=== PATIENT | female | born 1985 | race Two or more races ===

== ENCOUNTER 2017-06-05 09:47 | Emergency (ER) | payer MEDICAID ==
[~2017-06-05] VITALS: Ht 149.9 cm; Wt 94.6 kg
[2017-06-05] MEDS ORDERED: KETOROLAC 30 MG/1 ML ONE (10:14)
[2017-06-05] MEDS ORDERED: KETOROLAC 30 MG/1 ML IM ONE (10:30)
[2017-06-05] MEDS ORDERED: METHOCARBAMOL 500 MG TABLET PO ONE (10:30)
[2017-06-05 10:53] LABS: CULTURE INDICATED? YES; MICROSCOPIC INDICATED
[2017-06-05 11:41] VITALS: BP 113/71
== END 2017-06-05 12:05 | disposition home or self-care (01) ==
LOC: ED 10:13
DX: S29.012A Strain of muscle and tendon of back wall of thorax, initial encounter (principal); F17.210 Nicotine dependence, cigarettes, uncomplicated; X58.XXXA Exposure to other specified factors, initial encounter; Y93.89 Activity, other specified; Y92.89 Other specified places as the place of occurrence of the external cause; Y99.8 Other external cause status
CPT/HCPCS: 74018; 76770; 81001; 87086; 96372; 99285; J1885

== ENCOUNTER 2018-09-18 20:00 | Emergency (ER) | payer SELFPAY ==
[~2018-09-18] VITALS: Ht 149.9 cm; Wt 94.2 kg
--- NOTE | 2018-09-18 20:24 | NUR ---
First contact w/ pt. Evident marijuana smell permeating room. Pt presents w/ abd pain and bilateral flank painxmultiple days and n/v. States vbx2 days and hx of hysterectomy. C/o kaur today w/ mild photophobia. Pt attempting ua at this time.
[2018-09-18] MEDS ORDERED: PROMETHAZINE 25 MG/ML, 1ML ONE (20:40)
[2018-09-18 20:50] LABS: MICROSCOPIC INDICATED
[2018-09-18 20:50] LABS: BASOPHILS # (AUTO) 0.05 x10^3/uL (0-0.1); BASOPHILS % (AUTO) 1 % (0-1); EOSINOPHILS # (AUTO) 0.42 x10^3/uL (0-0.4); EOSINOPHILS % (AUTO) 5 % (1-7); LYMPHOCYTES # (AUTO) 2.97 x10^3/uL (1-3.4); LYMPHOCYTES % (AUTO) 36 % (22-44); MD NO; MEAN CORPUSCULAR HEMOGLOBIN 27.2 pg (27.0-34.8); MEAN CORPUSCULAR HGB CONC 33.4 g/dL (32.4-35.8); MEAN CORPUSCULAR VOLUME 81.6 fL (80-100); MEAN PLATELET VOLUME 8.3 fL (7.4-10.4); MONOCYTES # (AUTO) 0.42 x10^3/uL (0.2-0.8); MONOCYTES % (AUTO) 5 % (2-9); NEUTROPHILS # (AUTO) 4.43 x10^3/uL (1.8-6.8); NEUTROPHILS % (AUTO) 54 % (42-75); PLATELET COUNT 356 x10^3/uL (130-400); RED BLOOD COUNT 4.97 x10^6/uL (3.82-5.3); RED CELL DISTRIBUTION WIDTH 14.4 % (9.6-15.2)
[2018-09-18 20:51] LABS: CULTURE INDICATED? YES
[2018-09-18 20:56] LABS: ALANINE AMINOTRANSFERASE 28 U/L (12-78); ALBUMIN 3.2 g/dL (3.4-5.0); ANION GAP 6 mmol/L (5-15); CALCIUM 8.5 mg/dL (8.5-10.1); CHLORIDE 107 mmol/L (98-107); CREATININE 0.88 mg/dL (0.55-1.02)
[2018-09-18 20:59] LABS: ALKALINE PHOSPHATASE 103 U/L (45-117); BILIRUBIN,TOTAL < 0.1 mg/dL (0.2-1.0); TOTAL PROTEIN 7.6 g/dL (6.4-8.2)
[2018-09-18] MEDS ORDERED: PROMETHAZINE 25 MG/ML, 1ML IM ONE (21:00)
[2018-09-18 21:12] VITALS: BP 128/70
--- NOTE | 2018-09-18 21:13 | NUR ---
Md states no pelvic needed at this time. All results back. Pt up for recheck.
[2018-09-18] MEDS ORDERED: CEFDINIR 300 MG CAPSULE PO ONE (21:30)
[2018-09-18] MEDS ORDERED: CEFDINIR 300 MG CAPSULE ONE (21:31)
--- NOTE | 2018-09-18 21:38 | NUR ---
Pt tbdc. Awaiting dc instructions.
== END 2018-09-18 21:53 | disposition home or self-care (01) ==
LOC: ED 21:47
DX: N30.01 Acute cystitis with hematuria (principal); G43.009 Migraine without aura, not intractable, without status migrainosus; F17.200 Nicotine dependence, unspecified, uncomplicated
CPT/HCPCS: 36415; 80053; 81001; 83690; 85025; 87077; 87086; 96372; 99283; J2550; 87186

== ENCOUNTER 2018-10-14 12:52 | Emergency (ER) | payer MEDICAID ==
[~2018-10-14] VITALS: Ht 149.9 cm; Wt 94.0 kg
--- NOTE | 2018-10-14 13:15 | NUR ---
First contact with pt. Dr. Arguelles at bedside to evaluate pt. Pt c/o midline CP starting last night with N/V, today pain started radiating down L arm. Pt appears extremely restless, tearful. Pt placed in gown, positioned for comfort in bed. Continuous heart, oxygen and BP Monitors applied, all safety measures observed.
[2018-10-14] MEDS ORDERED: KETOROLAC 30 MG/1 ML ONE (13:29)
[2018-10-14] MEDS ORDERED: LORazepam 2 MG/ML, 1ML IVPush ONE (13:30)
[2018-10-14] MEDS ORDERED: KETOROLAC 30 MG/1 ML IVPush ONE (13:30)
[2018-10-14] MEDS ORDERED: SODIUM CHLORIDE FLUSH 10ML SYR IVF ONE (13:30)
[2018-10-14] MEDS ORDERED: LORazepam 2 MG/ML, 1ML ONE (13:30)
--- NOTE | 2018-10-14 13:37 | NUR ---
Pt medicated per MAR.
[2018-10-14 13:40] LABS: BASOPHILS # (AUTO) 0.03 x10^3/uL (0-0.1); BASOPHILS % (AUTO) 1 % (0-1); EOSINOPHILS # (AUTO) 0.19 x10^3/uL (0-0.4); EOSINOPHILS % (AUTO) 3 % (1-7); LYMPHOCYTES # (AUTO) 2.51 x10^3/uL (1-3.4); LYMPHOCYTES % (AUTO) 44 % (22-44); MD NO; MEAN CORPUSCULAR HEMOGLOBIN 26.5 pg (27.0-34.8); MEAN CORPUSCULAR HGB CONC 32.6 g/dL (32.4-35.8); MEAN CORPUSCULAR VOLUME 81.2 fL (80-100); MEAN PLATELET VOLUME 8.1 fL (7.4-10.4); MONOCYTES # (AUTO) 0.34 x10^3/uL (0.2-0.8); MONOCYTES % (AUTO) 6 % (2-9); NEUTROPHILS # (AUTO) 2.66 x10^3/uL (1.8-6.8); NEUTROPHILS % (AUTO) 47 % (42-75); PLATELET COUNT 348 x10^3/uL (130-400); RED BLOOD COUNT 4.96 x10^6/uL (3.82-5.3); RED CELL DISTRIBUTION WIDTH 14.3 % (9.6-15.2)
[2018-10-14 13:53] LABS: ALBUMIN 3.4 g/dL (3.4-5.0); ANION GAP 8 mmol/L (5-15); CALCIUM 9.1 mg/dL (8.5-10.1); CHLORIDE 106 mmol/L (98-107)
[2018-10-14 14:01] LABS: ALANINE AMINOTRANSFERASE 24 U/L (12-78); ALKALINE PHOSPHATASE 97 U/L (45-117); BILIRUBIN,TOTAL 0.2 mg/dL (0.2-1.0); TROPONIN I < 0.015 ng/mL (0.000-0.045)
[2018-10-14 15:03] VITALS: BP 106/53
--- NOTE | 2018-10-14 15:03 | NUR ---
ready for dc.Pt states she is feeling much better after medications,
== END 2018-10-14 15:03 | disposition home or self-care (01) ==
LOC: ED 14:50
DX: R07.2 Precordial pain (principal); F41.1 Generalized anxiety disorder; R06.4 Hyperventilation; F17.200 Nicotine dependence, unspecified, uncomplicated; Z85.43 Personal history of malignant neoplasm of ovary; Z90.710 Acquired absence of both cervix and uterus
CPT/HCPCS: 36415; 71045; 80053; 83690; 84484; 85025; 85379; 93005; 96374; 96375; 99284; J1885; J2060